=== PATIENT | male | born 1980 | race Asian ===

== ENCOUNTER 2017-09-18 12:24 | Emergency (ER) | payer MEDICAID ==
[~2017-09-18] VITALS: Ht 170.2 cm; Wt 67.3 kg
[2017-09-18 12:29] VITALS: BP 115/72; TEMP 98.3
[2017-09-18 14:57] LABS: BASO % 0.2 % (0.0-2.0); GRAN # 7.9 (1.4-6.5); GRAN % 94.8 % (42.2-75.2); HEMATOCRIT 46.3 % (42.0-52.0); HEMOGLOBIN 16.4 g/dl (13.5-18.0); LYMPH # 0.2 (1.2-3.4); LYMPH % 2.6 % (20.0-51.0); MEAN CELL VOLUME 87 fl (80.0-100.0); MEAN CORPUSCULAR HEMOGLOBIN 31 pg (27.0-31.0); MEAN CORPUSCULAR HGB CONC 35 g/dl (33.0-37.0); MEAN PLATELET VOLUME 9.7 fl (7.4-10.4); MONO # 0.2 (0.1-0.6); MONO % 2.2 % (1.7-9.3); PLATELET COUNT 220 K/mm3 (130-400); REDCELL DISTRIBUTION WIDTH-CV 11.9 % (11.5-14.5)
[2017-09-18 15:10] LABS: ALBUMIN 5.2 gm/dL (3.5-5.0); BILIRUBIN,TOTAL 2.3 mg/dL (0.0-1.0); CALCIUM 9.5 mg/dL (8.4-10.2); CREATININE, serum 1.07 mg/dL (0.66-1.25); POTASSIUM 4.2 mmol/L (3.4-5.0); TOTAL PROTEIN 8.1 gm/dL (6.4-8.2)
[2017-09-18] MEDS ORDERED: ZOFRAN ODT4 MG PO (15:19)
[2017-09-18 16:18] VITALS: PULSE 78
== END 2017-09-18 16:20 | disposition home or self-care (01) ==
LOC: COL.ER 12:24
PROVIDERS: Physician Assistant
DX: K52.9 Noninfective gastroenteritis and colitis, unspecified (principal)
CPT/HCPCS: J2405; J2765; J7030

== ENCOUNTER 2019-02-18 13:30 | Outpatient (RCR) | payer BC, MEDICAID ==
[~2019-02-18 13:30] MED LIST: ZOFRAN ODT4 MG PO
== END 2019-03-10 14:28 | disposition home or self-care (01) ==
LOC: WSOT 13:30
DX: G56.03 Carpal tunnel syndrome, bilateral upper limbs (principal)

== ENCOUNTER 2019-05-08 19:55 | Emergency (ER) | payer BC, MEDICAID ==
[~2019-05-08] VITALS: Ht 170.2 cm; Wt 70.5 kg
[2019-05-08 20:03] VITALS: TEMP 98
[2019-05-08] MEDS ORDERED: ANUSOL HC CREAM30 GM TP (20:40)
[2019-05-08 20:47] VITALS: BP 127/87; PULSE 82
== END 2019-05-08 20:47 | disposition home or self-care (01) ==
LOC: COL.ER 19:55
DX: K64.4 Residual hemorrhoidal skin tags (principal); Z88.0 Allergy status to penicillin

== ENCOUNTER 2022-02-13 20:47 | Emergency (ER) | payer MEDICAID ==
[~2022-02-13] VITALS: Ht 170.2 cm; Wt 70.9 kg
[~2022-02-13 20:47] MED LIST changes: +ANUSOL HC CREAM30 GM TP
[2022-02-13 21:06] VITALS: BP 152/88; TEMP 98.6
[2022-02-13] MEDS ORDERED: LEXAPRO 10MG10 MG PO (21:09)
[2022-02-13 21:13] LABS: COLLECTION METHOD CLEAN CATCH
[2022-02-13 21:20] LABS: PH 7 (5-8); SQUAMOUS EPITHELIAL None Seen /hpf (0-10); URINE APPEARANCE Clear (CLEAR/HAZY); URINE BACTERIA None Seen /hpf (NONE SEEN); URINE BILIRUBIN Negative (NEGATIVE); URINE BLOOD Negative (NEGATIVE); URINE COLOR Straw (YELLOW); URINE GLUCOSE Negative (NEGATIVE); URINE KETONE Negative (NEGATIVE); URINE LEUKOCYTE ESTERASE Negative (NEGATIVE); URINE NITRATE Negative (NEGATIVE); URINE PROTEIN(semi-quant) Negative (NEGATIVE); URINE RBC 0-2 /hpf (0-2); URINE UROBILINOGEN Negative (NEGATIVE)
[2022-02-13 21:52] LABS: BASO % 0.6 % (0.0-2.0); EOS # 0.1 K/mm3 (0.0-0.7); EOS % 2.4 % (0.0-4.0); GRAN # 2.9 K/mm3 (1.4-6.5); GRAN % 54.7 % (42.2-75.2); HEMATOCRIT 44.2 % (42.0-52.0); HEMOGLOBIN 15.9 g/dl (13.5-18.0); LYMPH # 1.8 K/mm3 (1.2-3.4); LYMPH % 34.2 % (20.0-51.0); MEAN CELL VOLUME 85 fl (80.0-100.0); MEAN CORPUSCULAR HEMOGLOBIN 31 pg (27-31); MEAN CORPUSCULAR HGB CONC 36 g/dl (33.0-37.0); MEAN PLATELET VOLUME 9.6 fl (7.4-10.4); MONO # 0.4 K/mm3 (0.1-0.6); MONO % 7.3 % (1.7-9.3); PLATELET COUNT 283 K/mm3 (130-400); REDCELL DISTRIBUTION WIDTH-CV 11.7 % (11.5-14.5)
[2022-02-13 22:13] LABS: ALBUMIN 4.5 gm/dL (3.5-5.0); BILIRUBIN,TOTAL 0.8 mg/dL (0.2-1.2); C-REACTIVE PROTEIN 0.12 mg/dL (0.00-0.50); CALCIUM 9.4 mg/dL (8.4-10.2); CREATININE, serum 1.26 mg/dL (0.72-1.25); POTASSIUM 3.9 mmol/L (3.5-4.5); TOTAL PROTEIN 8.1 gm/dL (6.2-8.1)
[2022-02-14 00:14] VITALS: PULSE 58
[2022-02-14] MEDS ORDERED: NAPROSYN500 MG PO (03:02)
== END 2022-02-14 00:14 | disposition home or self-care (01) ==
LOC: COL.ER 20:47
PROVIDERS: Emergency Medicine
DX: R10.32 Left lower quadrant pain (principal); R31.9 Hematuria, unspecified
CPT/HCPCS: J1885; J3010; J7030; Q9967